=== PATIENT | male | born 1980 | race Caucasian/White ===

== ENCOUNTER 2017-06-18 11:29 | Day surgery (SDC) | payer OTHER ==
[2017-06-18 11:29] VITALS: BMI 28.3
[2017-06-18] MEDS ORDERED: Sodium Chloride 0.9% 1,000 ML IV ONE (12:37)
[2017-06-18 13:16] LABS: BASO % 0.5 % (0.0-2.0); EOS # 0.1 K/uL (0.0-0.7); EOS % 1.6 % (0.0-4.0); LYMPH # 2.9 K/uL (1.0-4.3); LYMPH % 54.5 % (20.0-40.0); MEAN CELL VOLUME 91.1 fL (80.0-94.0); MEAN CORPUSCULAR HEMOGLOBIN 31.7 pg (27.0-31.0); MEAN CORPUSCULAR HGB CONC 34.8 g/dL (33.0-37.0); MONO # 0.4 K/uL (0.0-0.8); NEUT # 1.9 K/uL (1.8-7.0); NEUT % 36.4 % (50.0-75.0); NRBC % 0.2 % (0.0-2.0); RBC 4.43 Mil/uL (4.40-5.90); RED CELL DISTRIBUTION WIDTH 13.1 % (11.5-14.5); WHITE BLOOD COUNT 5.3 K/uL (4.8-10.8)
[2017-06-18 13:19] LABS: URINE BILIRUBIN NEGATIVE (NEGATIVE); URINE BLOOD NEGATIVE (NEGATIVE); URINE CLARITY Clear (Clear); URINE COLOR Yellow (YELLOW); URINE GLUCOSE (UA) NORMAL (Normal); URINE LEUKOCYTE ESTERASE NEG Leu/uL (Negative); URINE PROTEIN NEGATIVE (NEGATIVE); URINE UROBILINOGEN NORMAL mg/dL (0.2-1.0)
[2017-06-18 13:37] LABS: ALB/GLOB RATIO 1.3 (1.0-2.1); ALBUMIN 4.4 g/dL (3.5-5.0); ALT/SGPT 74 U/L (21-72); AST/SGOT 42 U/L (17-59); BLOOD UREA NITROGEN 10 mg/dL (9-20); CALCIUM 8.8 mg/dl (8.6-10.4); GFR AFRICAN-AMERICAN > 60; GFR NON-AFRICAN AMERICAN > 60
--- NOTE | 2017-06-18 14:32 | US ---
HISTORY: left teticular pain TECHNIQUE: Realtime sonography through the scrotum with color and doppler flow. COMPARISON: None Available. FINDINGS: RIGHT TESTICLE: Measures 5.0 x 2.2 x 3.5 cm. Homogeneous echotexture. No mass. Normal flow. RIGHT EPIDIDYMIS: Normal size, morphology and vascularity. LEFT TESTICLE: Measures 5.5 x 2.2 x 3.3 cm. Homogeneous echotexture. No mass. Normal flow. LEFT EPIDIDYMIS: Normal size, morphology and vascularity. HYDROCELE: Trace bilateral hydrocele, nonspecific. VARICOCELE: None. OTHER FINDINGS: None. IMPRESSION: Unremarkable examination. No evidence of testicular torsion or epididymo-orchitis.
--- NOTE | 2017-06-18 15:34 | C.PDOC ---
History Of Present Illness Patient presents to ED c/o left testicular pain and swelling with associated dysuria for several weeks. He denies fever, abdominal pain, hematuria, penile discharge, trauma/injuries. Time Seen by Provider: 06/18/17 12:36 Chief Complaint (Nursing): Male Genitourinary History Per: Patient History/Exam Limitations: no limitations Onset/Duration Of Symptoms: Sudden Onset Current Symptoms Are (Timing): Still Present Severity: Mild Quality Of Discomfort: "Pain" Past Medical History Reviewed: Historical Data, Nursing Documentation, Vital Signs Vital Signs: Last Vital Signs Temp 98.3 F 06/18/17 20:05 Pulse 73 06/18/17 20:05 Resp 15 06/18/17 20:05 BP 123/76 06/18/17 20:05 Pulse Ox 100 06/18/17 20:05 - Medical History PMH: No Chronic Diseases Family History: States: No Known Family Hx - Social History Hx Alcohol Use: No Hx Substance Use: No - Immunization History Hx Influenza Vaccination: No Review Of Systems Constitutional: Negative for: Fever, Chills Cardiovascular: Negative for: Chest Pain, Palpitations Respiratory: Negative for: Shortness of Breath Gastrointestinal: Negative for: Nausea, Vomiting, Abdominal Pain, Diarrhea Genitourinary: Positive for: Other (left testicular pain/swelling) Physical Exam - Physical Exam Appears: Well, Non-toxic, No Acute Distress Oral Mucosa: Moist Cardiovascular: Rhythm Regular Respiratory: Normal Breath Sounds, No Rales, No Rhonchi, No Wheezing Gastrointestinal/Abdominal: Normal Exam, Bowel Sounds, Soft, No Tenderness Male Genital: Other (right testicular mild TTP without erythema or swelling) ED Course And Treatment - Laboratory Results Result Diagrams: 06/18/17 13:08 06/18/17 13:08 O2 Sat by Pulse Oximetry: 100 (RA) Pulse Ox Interpretation: Normal Progress Note: Blood work, UA, testicular US ordered and reviewed. 13:30- Patient now states he has been seen by Dr. Danielle Campbell and had blood work done already - was instructed to have cystoscopy done. Will speak with Dr. Campbell. - Physician Consult Information Physician Contacted: Dell Campbell Outcome Of Conversation: Discussed patient with his urologist, will admit to same day surgery for cystoscopy. Disposition - Disposition Disposition: HOSPITALIZED Disposition Time: 15:21 Condition: STABLE - Clinical Impression Clinical Impression: Dysuria, Testicular pain Decision To Admit - Pt Status Changed To: Hospital Disposition Of: SDS- Endo,OR,Cath,IR - . Bed Request Type: Same Day Surgery Admitting Physician: Dell Campbell Patient Diagnosis: Testicular pain, Dysuria
[2017-06-18] MEDS ORDERED: Dextrose 5%/0.9% NS 1,000 ML IV ONE ×2 (16:36→16:42)
[2017-06-18] MEDS ORDERED: HYDROmorphone 0.5 mg/0.5 ml ISec IVP PRN (18:12)
[2017-06-18] MEDS ORDERED: cefTRIAXone IV 1 gm in Dextros 50 ML IVPB ONE ×2 (18:18→18:29)
[2017-06-18] MEDS ORDERED: Iohexol 240 (50 ml) ONE (18:18)
[2017-06-18] MEDS ORDERED: Propofol 10 mg/ml Inj (20 ML) ONE (18:21)
[2017-06-18] MEDS ORDERED: Midazolam 2 MG/2 ML VIAL ONE (18:21)
[2017-06-18 19:19] VITALS: O2SAT 100
[2017-06-18 20:06] VITALS: RESP 15
[2017-06-18 20:25] VITALS: BP 123/76; PULSE 73; TEMP 98.3
--- NOTE | 2017-06-19 07:45 | RAD ---
PROCEDURE: Intraoperative Fluoroscopy. HISTORY: Bilateral flank pain FINDINGS: Fluoroscopic assistance was provided for cystogram with bilateral retrograde urography. Please refer to the operative report from TONI Mercedes, , MD [facility].
--- NOTE | 2017-06-19 11:25 | RAD ---
HISTORY: LT/RT SIDE PAIN COMPARISON: No prior study available for comparison FINDINGS: BOWEL: Normal. No obstruction. No free air. BONES: Normal. OTHER FINDINGS: No definitive abnormal calcifications. IMPRESSION: No active disease.
--- NOTE | 2017-07-05 11:22 | HP ---
REASON FOR ADMISSION: For workup of abdominal pain and groin pain and microhematuria. HISTORY OF PRESENT ILLNESS: Mr. Caputo is a very pleasant gentleman who is now being brought into the hospital for further evaluation and treatment. He complains of abdominal pain, discomfort, voiding dysfunction, he also has intermittent flank pain. We discussed various options with the patient. He previously had workup with ultrasounds, CAT scan, upper track imaging, etc., and now he is coming in for a cystoscopic evaluation to rule out any stricture disease, any bladder pathology. PAST MEDICAL AND SURGICAL HISTORY: As listed. No history of AK, CVA, or asthma. SOCIAL HISTORY: Unremarkable. 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 He is also not able to always go to the bathroom. REVIEW OF SYSTEMS: As listed above, noncontributory. MEDICATIONS: See chart. ALLERGIES: SEE CHART. PHYSICAL EXAMINATION: GENERAL: This is a well-nourished male, in no apparent distress. VITAL SIGNS: Within normal limits. NECK: Supple. LUNGS: Clear. ABDOMEN: Overall soft, nontender. No flank masses. GENITOURINARY: He has a normal phallus without discharge. No testicular masses appreciated. RECTAL EXAM: Deferred soft, 10 to 20 g prostate, soft and smooth. LABORATORY DATA: See chart. IMAGING: See chart. All those within normal limits. DIAGNOSES: Abdominal pain, frequency, decreased force of stream, flank pain radiating to the groin, flank pain that radiates to the back. I discussed with the patient that there are some options including getting a second opinion, including going to another speciality, maybe, something related to the GI system. Discussed also Infectious Disease consulting, Rheumatology, Urology, etc. However, at this point, we still need to exclude any urology pathology, urethral stricture disease, kidney stone disease, bladder pathology. PLAN: Today we are going to do a cystoscopy, retrograde pyelogram, possible biopsy depending on how he does clinically. Risks, benefits discussed at length. We will plan to proceed. Jero Campbell MD [facility] # [id number]
--- NOTE | 2017-07-05 11:29 | OP ---
PROCEDURE DATE: 06/18/2017 PREOPERATIVE DIAGNOSES: Voiding dysfunction, decreased force of stream, nocturia, flank pain radiating to the groin, scrotal pain, abdominal pain, lower pelvic pain. POSTOPERATIVE DIAGNOSES: Voiding dysfunction, decreased force of stream, nocturia, flank pain radiating to the groin, scrotal pain, abdominal pain, lower pelvic pain. PROCEDURE: Cystoscopy, bilateral retrograde pyelogram. ESTIMATED BLOOD LOSS: Less than 10 mL No drains. FINDINGS: Normal anterior urethra, no strictures. We were hoping that may be there will be some abnormality encountered. The verumontanum is minimally visually occlusive, about 2 cm at most. No changes in bladder mucosa; otherwise, relatively within normal limits. No obvious abnormalities detected. Normal upper tract was detected. Films were submitted to radiologist to read. There were no known complications. INDICATIONS: See history and physical for further details. A pleasant gentleman is here for the above procedure. We discussed options, risks, benefits, and treatment alternatives. DESCRIPTION OF PROCEDURE: After obtaining informed consent, the patient was placed on the table. Routine monitor was placed. Time-out was called to confirm the patient and positioning. We introduced the cystoscope via urethra. No strictures were identified. This all done under direct vision. No strictures identified. Verumontanum minimally visually occlusive, less than 2 cm, pictures were taken today. Ureteral orifices were identified. Retrograde pyelograms were performed. All within normal limits. The remainder was otherwise unremarkable. The patient tolerated the procedure well without complications. Jero Campbell MD
== END 2017-06-18 21:00 | disposition home or self-care (01) ==
LOC: C.SDS 11:29 → C.ER 11:29 → C.SDS 15:21
PROVIDERS: ATTEND Urology
DX: N50.812 Left testicular pain (principal); R30.0 Dysuria; N50.82 Scrotal pain; R31.29 Other microscopic hematuria
CPT/HCPCS: 52005; 74018; 76870; 80053; 81001; 82948; 85025; 87086; 96360; 99285; C1758; J0696; J1580; J7040; J7042